=== PATIENT | female | born 1995 | race Caucasian/White ===

== ENCOUNTER 2018-06-25 22:24 | Emergency (ER) | payer MEDICAID ==
[~2018-06-25] VITALS: Ht 157.5 cm; Wt 104.3 kg
[2018-06-25 22:41] VITALS: Ht 157.5 cm; Wt 104.3 kg
[2018-06-25] MEDS ORDERED: EC-NAPROSYN500 MG PO (23:40)
[2018-06-26 00:31] VITALS: BP 138/63
== END 2018-06-26 00:31 | disposition home or self-care (01) ==
LOC: D.ER 22:24
DX: K08.89 Other specified disorders of teeth and supporting structures (principal); R05 Cough

== ENCOUNTER 2018-07-24 10:27 | Emergency (ER) | payer MEDICAID ==
[~2018-07-24] VITALS: Ht 157.5 cm; Wt 97.7 kg
[~2018-07-24 10:27] MED LIST: EC-NAPROSYN500 MG PO
[2018-07-24 10:32] VITALS: Ht 157.5 cm; Wt 97.7 kg
[2018-07-24] MEDS ORDERED: ALBUTEROL SULF8.5 GM INH (11:44)
[2018-07-24] MEDS ORDERED: VIBRAMYCIN 100100 MG PO (11:44)
[2018-07-24 12:19] VITALS: BP 135/84
== END 2018-07-24 12:21 | disposition home or self-care (01) ==
LOC: D.ER 10:27
DX: J06.9 Acute upper respiratory infection, unspecified (principal); J40 Bronchitis, not specified as acute or chronic; R09.89 Other specified symptoms and signs involving the circulatory and respiratory systems; M79.18 Myalgia, other site

== ENCOUNTER 2018-09-20 08:11 | Emergency (ER) | payer MEDICAID ==
[~2018-09-20] VITALS: Ht 157.5 cm; Wt 100.0 kg
[~2018-09-20 08:11] MED LIST changes: +ALBUTEROL SULF8.5 GM INH; +VIBRAMYCIN 100100 MG PO
[2018-09-20 08:26] VITALS: BP 124/64; Ht 157.5 cm; Wt 100.0 kg
[2018-09-20 08:47] LABS: BASOPHILS 0 % (0-2); EOSINOPHILS 2.8 % (0-7); HEMATOCRIT 40.8 % (36.0-48.0); HEMOGLOBIN 13.5 g/dL (12-16); IMMATURE GRANULOCYTES 0.2 % (0-5); LYMPHOCYTES 39.1 % (15-50); MCH 31.6 pg (26.0-34.0); MCHC 33.1 g/dL (31.0-37.0); MCV 95.6 fL (80.0-100.0); MEAN PLATELET VOLUME 9.1 fL (7.4-10.4); MONOCYTES 10.4 % (2-11); NEUTROPHILS 47.5 % (40-80); RBC 4.27 10x6/uL (4.00-5.40); RDW 13.6 % (11.5-14.5); WBC 4.3 10x3/uL (4.8-10.8)
[2018-09-20 08:54] LABS: PLATELET COUNT 220 10x3/uL (130-400)
[2018-09-20 09:02] LABS: ALBUMIN 3.6 g/dL (3.4-5.0); ALKALINE PHOSPHATASE 84 U/L (46-116); ALT (SGPT) 19 U/L (10-68); BILIRUBIN - TOTAL 0.18 mg/dL (0.2-1.3); CALC OSMOLALITY 275 mosm/kg (275-300); CALCIUM 8.7 mg/dL (8.5-10.1); CARBON DIOXIDE 27.2 mmol/L (21.0-32.0); CHLORIDE - SERUM 105 mmol/L (98-107); CREATININE - SERUM 0.7 mg/dL (0.6-1.3); GLUCOSE 93 mg/dL (74-106); POTASSIUM - SERUM 3.9 mmol/L (3.5-5.1); PROTEIN - SERUM 7.5 g/dL (6.4-8.2); SODIUM 139 mmol/L (136-145); UREA NITROGEN 7 mg/dL (7-18); eGFR NON AFRICAN AMERICAN > 90 mL/min (90-120)
[2018-09-20 09:05] LABS: AMYLASE - SERUM 34 U/L (25-115); LIPASE 78 U/L (73-393); TROPONIN-I < 0.017 ng/mL (0.000-0.060)
[2018-09-20 09:07] LABS: APPEARANCE HAZY (CLEAR); COLOR YELLOW (YELLOW)
[2018-09-20 09:08] LABS: BACTERIA MODERATE /hpf (NONE SEEN); BILIRUBIN NEGATIVE (NEGATIVE); EPITHELIAL CELLS 0-5 /hpf (0-5); GLUCOSE NEGATIVE (NEGATIVE); KETONE NEGATIVE (NEGATIVE); MUCUS <1+ /lpf (NONE SEEN); NITRITE NEGATIVE (NEGATIVE); PROTEIN NEGATIVE (NEGATIVE); UROBILINOGEN NORMAL (NORMAL); WHITE CELLS - URINE 0-5 /hpf (0-5)
[2018-09-20 09:14] LABS: HCG URINE NEGATIVE (NEGATIVE)
[2018-09-20] MEDS ORDERED: FLAGYL500 MG PO (12:10)
[2018-09-20] MEDS ORDERED: ZOFRAN ODT4 MG/UDTAB PO (12:10)
== END 2018-09-20 11:34 | disposition left against medical advice (07) ==
LOC: D.ER 08:11
PROVIDERS: Family Medicine
DX: N76.0 Acute vaginitis (principal); B96.89 Other specified bacterial agents as the cause of diseases classified elsewhere; R11.2 Nausea with vomiting, unspecified

== ENCOUNTER 2018-11-23 17:00 | Emergency (ER) | payer MEDICAID ==
[~2018-11-23] VITALS: Ht 157.5 cm; Wt 84.1 kg
[~2018-11-23 17:00] MED LIST changes: +FLAGYL500 MG PO; +ZOFRAN ODT4 MG/UDTAB PO
[2018-11-23 17:15] VITALS: Ht 157.5 cm; Wt 84.1 kg
[2018-11-23] MEDS ORDERED: TORADOL10 MG PO (20:50)
[2018-11-23 21:23] VITALS: BP 124/87
== END 2018-11-23 21:23 | disposition home or self-care (01) ==
LOC: D.ER 17:00
DX: G56.01 Carpal tunnel syndrome, right upper limb (principal)

== ENCOUNTER 2020-07-24 18:08 | Emergency (ER) | payer MEDICAID ==
[~2020-07-24] VITALS: Ht 157.5 cm; Wt 100.0 kg
[~2020-07-24 18:08] MED LIST changes: +TORADOL10 MG PO
[2020-07-24 18:13] VITALS: Ht 157.5 cm; Wt 100.0 kg
[2020-07-24 19:23] LABS: BILIRUBIN NEGATIVE (NEGATIVE); KETONE NEGATIVE (NEGATIVE); NITRITE NEGATIVE (NEGATIVE); UROBILINOGEN NORMAL mg/dL (< 2)
[2020-07-24 19:26] LABS: BACTERIA FEW HPF (NONE SEEN); SQUAMOUS EPITHELIAL 0-5 HPF (0-4); WHITE CELLS - URINE 0-5 HPF (0-4)
[2020-07-24 19:31] LABS: BASOPHILS 0.1 % (0-2); EOSINOPHILS 0.4 % (0-7); HEMATOCRIT 38.4 % (36.0-48.0); HEMOGLOBIN 12.8 g/dL (12-16); IMMATURE GRANULOCYTES 0.2 % (0-5); LYMPHOCYTE ABS# 4.09 10x3/uL (1.18-3.74); LYMPHOCYTES 39.1 % (15-50); MCH 31.8 pg (26.0-34.0); MCHC 33.3 g/dL (31.0-37.0); MCV 95.3 fL (80.0-100.0); MEAN PLATELET VOLUME 8.7 fL (7.4-10.4); MONOCYTES 6.5 % (2-11); NEUTROPHIL ABS# 5.61 10x3/uL (1.56-6.13); NEUTROPHILS 53.7 % (40-80); PLATELET COUNT 254 10x3/uL (130-400); RBC 4.03 10x6/uL (4.00-5.40); RDW 13.5 % (11.5-14.5); WBC 10.5 10x3/uL (4.8-10.8)
[2020-07-24 19:41] LABS: CALC OSMOLALITY 267 mosm/kg (275-300); CALCIUM 8.9 mg/dL (8.5-10.1); CARBON DIOXIDE 26.7 mmol/L (21.0-32.0); CHLORIDE - SERUM 101 mmol/L (98-107); CREATININE - SERUM 0.6 mg/dL (0.6-1.3); GLUCOSE 89 mg/dL (74-106); POTASSIUM - SERUM 3.7 mmol/L (3.5-5.1); SODIUM 135 mmol/L (136-145); UREA NITROGEN 9 mg/dL (7-18); eGFR NON AFRICAN AMERICAN > 90 mL/min (90-120)
[2020-07-24 19:50] LABS: HCG SERUM POSITIVE (NEGATIVE)
[2020-07-24 20:19] LABS: ALBUMIN 3.4 g/dL (3.4-5.0); ALKALINE PHOSPHATASE 59 U/L (30-120); ALT (SGPT) 19 U/L (10-68); BILIRUBIN - TOTAL 0.15 mg/dL (0.2-1.3); HCG - QUANTITATIVE (MATERNAL) 74698 mIU/mL; PROTEIN - SERUM 7.1 g/dL (6.4-8.2)
[2020-07-24 22:43] VITALS: BP 108/56
== END 2020-07-24 22:42 | disposition home or self-care (01) ==
LOC: D.ER 18:08
PROVIDERS: Emergency Medicine
DX: O20.9 Hemorrhage in early pregnancy, unspecified (principal); Z3A.08 8 weeks gestation of pregnancy